=== PATIENT | female | born 1965 | race Caucasian/White ===

== ENCOUNTER → 2020-11-20 | Outpatient (CLI) | payer MEDICARE, OTHER ==
[~2020-11-20] MED LIST: ABILIFY5 MG PO; BENTYL 10MG CAP10 MG PO; CELEBREX200 MG PO; CIPRO500 MG PO; FLEXERIL 10 MG10 MG PO; HYDROCHLOROTH12.5 M1 PO; LEXAPRO20 MG PO; LIPITOR10 MG PO; LYRICA50 MG PO; METHOCARBAMOL500 MG PO; NORCO 7.5-3251 EACH PO; PROTONIX 40 MG40 M1 PO; ROPINIROLE HCL1 MG PO; TOPROL XL 50 MG50 MG PO; VOLTAREN EC 5050 MG PO; WELLBUTRIN XL300 M1 PO; ZESTRIL30 MG PO
== END ==
LOC: KOH-I 11:54
DX: M79.672 Pain in left foot (principal); M19.072 Primary osteoarthritis, left ankle and foot; M77.32 Calcaneal spur, left foot
CPT/HCPCS: 73650

== ENCOUNTER 2021-02-12 11:18 | Inpatient (IN) | payer MEDICARE, OTHER ==
[~2021-02-12] VITALS: Ht 165.1 cm; Wt 148.3 kg
[~2021-02-12 11:18] MED LIST changes: -BENTYL 10MG CAP10 MG PO; -CELEBREX200 MG PO; -HYDROCHLOROTH12.5 M1 PO; -LEXAPRO20 MG PO; -LIPITOR10 MG PO; -LYRICA50 MG PO; -METHOCARBAMOL500 MG PO; -PROTONIX 40 MG40 M1 PO; -ROPINIROLE HCL1 MG PO; -TOPROL XL 50 MG50 MG PO; -VOLTAREN EC 5050 MG PO; -ZESTRIL30 MG PO
[2021-02-12 13:38] LABS: RED BLOOD COUNT 4.41 M/UL (4.00-5.10); WHITE BLOOD COUNT 8.5 K/UL (4.5-11.0)
[2021-02-12 14:02] LABS: BUN/CREATININE RATIO 26 (0-10)
[2021-02-12] MEDS ORDERED: VOLTAREN EC 5050 MG PO (14:46)
[2021-02-12] MEDS ORDERED: ROPINIROLE HCL1 MG PO (14:46)
[2021-02-12] MEDS ORDERED: CELEBREX200 MG PO (14:47)
[2021-02-12] MEDS ORDERED: LIPITOR10 MG PO (14:47)
[2021-02-12] MEDS ORDERED: ZESTRIL30 MG PO (14:48)
[2021-02-12] MEDS ORDERED: BENTYL 10MG CAP10 MG PO (14:48)
[2021-02-12] MEDS ORDERED: HYDROCHLOROTH12.5 M1 PO (14:49)
[2021-02-12] MEDS ORDERED: LYRICA50 MG PO (14:49)
[2021-02-12] MEDS ORDERED: METHOCARBAMOL500 MG PO (14:49)
[2021-02-12] MEDS ORDERED: PROTONIX 40 MG40 M1 PO (14:50)
[2021-02-12] MEDS ORDERED: LEXAPRO20 MG PO (14:50)
[2021-02-12] MEDS ORDERED: TOPROL XL 50 MG50 MG PO (14:51)
[2021-02-13 03:11] LABS: HEMOGLOBIN 11.1 gm/dl (12.3-15.3); RED BLOOD COUNT 4.15 M/UL (4.00-5.10); WHITE BLOOD COUNT 7.4 K/UL (4.5-11.0)
[2021-02-13 03:44] LABS: BUN/CREATININE RATIO 20 (0-10)
[2021-02-14 04:18] LABS: BUN/CREATININE RATIO 14 (0-10)
[2021-02-14 04:21] LABS: HEMOGLOBIN 10.9 gm/dl (12.3-15.3); RED BLOOD COUNT 4.14 M/UL (4.00-5.10); WHITE BLOOD COUNT 7.8 K/UL (4.5-11.0)
--- NOTE | 2021-02-15 10:27 | NUR ---
INSTRUCTED PATIENT ON IMPORTANCE OF TAKING MEDS ORDERED. FOLLOW DIET TO ASSIST WITH PREVENTION OF DIVERTICULITIS FLARE UPS. AVOID NUTS AND SEEDS.KEEP FOLLOW UP APPOINTMNTS. VERBALIZED UNDDERSTANDING. SONYA MEI R.N.
== END 2021-02-15 13:44 | disposition home or self-care (01) | DRG 378 ==
LOC: M/S 12:45 → CDU 02-14 11:06 → M/S 02-14 11:06
PROVIDERS: ADMIT Family Medicine
DX: K57.33 Diverticulitis of large intestine without perforation or abscess with bleeding (principal); Z68.43 Body mass index [BMI] 50.0-59.9, adult; K58.9 Irritable bowel syndrome, unspecified; F41.9 Anxiety disorder, unspecified; M19.90 Unspecified osteoarthritis, unspecified site; Z20.822 Contact with and (suspected) exposure to COVID-19; G89.29 Other chronic pain; F32.9 Major depressive disorder, single episode, unspecified; E03.9 Hypothyroidism, unspecified; M79.7 Fibromyalgia; E78.00 Pure hypercholesterolemia, unspecified; G47.33 Obstructive sleep apnea (adult) (pediatric); E66.9 Obesity, unspecified; M17.10 Unilateral primary osteoarthritis, unspecified knee; G25.81 Restless legs syndrome; G43.909 Migraine, unspecified, not intractable, without status migrainosus; Z90.49 Acquired absence of other specified parts of digestive tract; Z87.442 Personal history of urinary calculi; Z98.51 Tubal ligation status; Z82.61 Family history of arthritis; Z80.3 Family history of malignant neoplasm of breast; Z80.1 Family history of malignant neoplasm of trachea, bronchus and lung; Z82.49 Family history of ischemic heart disease and other diseases of the circulatory system
CPT/HCPCS: 36415; 80048; 80053; 82962; 85025; 85027; J1650; J1956; J2270; J2550; J7030; Q9967; U0002

== ENCOUNTER 2021-06-04 11:13 | Emergency (ER) | payer MEDICARE ==
[~2021-06-04] VITALS: Ht 165.1 cm; Wt 145.1 kg
[~2021-06-04 11:13] MED LIST changes: +BENTYL 10MG CAP10 MG PO; +CELEBREX200 MG PO; +HYDROCHLOROTH12.5 M1 PO; +LEXAPRO20 MG PO; +LIPITOR10 MG PO; +LYRICA50 MG PO; +METHOCARBAMOL500 MG PO; +PROTONIX 40 MG40 M1 PO; +ROPINIROLE HCL1 MG PO; +TOPROL XL 50 MG50 MG PO; +VOLTAREN EC 5050 MG PO; +ZESTRIL30 MG PO
== END 2021-06-04 16:15 | disposition home or self-care (01) ==
LOC: ER1 11:13
DX: R51.9 Headache, unspecified (principal); J02.9 Acute pharyngitis, unspecified; R50.9 Fever, unspecified; I10 Essential (primary) hypertension; Z90.49 Acquired absence of other specified parts of digestive tract; Z20.822 Contact with and (suspected) exposure to COVID-19; Z23 Encounter for immunization
CPT/HCPCS: 99284; M0243; U0002

== ENCOUNTER → 2021-08-14 | Outpatient (CLI) | payer MEDICARE | LOC: KOH-I 13:30 | DX: S86.002A Unspecified injury of left Achilles tendon, initial encounter (principal); I73.9 Peripheral vascular disease, unspecified | CPT/HCPCS: 93926 ==

== ENCOUNTER → 2021-08-28 | Outpatient (CLI) | payer MEDICARE ==
[~2021-08-28] MED LIST changes: +CHLORTHALIDONE25 MG PO; +ST. JOSEPH ASPI81 M1 PO
[2021-08-28 11:10] LABS: HEMOGLOBIN 9.5 gm/dl (12.3-15.3); RED BLOOD COUNT 3.3 M/UL (4.00-5.10); WHITE BLOOD COUNT 8.2 K/UL (4.5-11.0)
[2021-08-28 11:35] LABS: BUN/CREATININE RATIO 29 (0-10)
== END ==
LOC: OPSV2 09:30
PROVIDERS: Podiatrist Foot & Ankle Surgery
DX: Z01.818 Encounter for other preprocedural examination (principal)
CPT/HCPCS: 36415; 71046; 80048; 85027; 93005

== ENCOUNTER → 2021-10-02 | Outpatient (CLI) | payer MEDICARE | LOC: KOH-I 12:20 | DX: M25.572 Pain in left ankle and joints of left foot (principal); M79.672 Pain in left foot | CPT/HCPCS: 73610; 73630 ==

== ENCOUNTER → 2021-12-04 | Outpatient (CLI) | payer MEDICARE | LOC: EXRD 15:22 | DX: M79.89 Other specified soft tissue disorders (principal); M79.605 Pain in left leg; R79.89 Other specified abnormal findings of blood chemistry | CPT/HCPCS: 93971 ==

== ENCOUNTER → 2021-12-04 | Outpatient (CLI) | payer MEDICARE ==
[2021-12-05 08:14] LABS: CALCIUM, SERUM 8.9 mg/dL (8.7-10.2); CREATININE, SERUM 0.78 mg/dL (0.57-1.00); POTASSIUM, SERUM 4.9 mmol/L (3.5-5.2)
== END ==
LOC: LAB 11:26
PROVIDERS: Physician Assistant
DX: M79.89 Other specified soft tissue disorders (principal)
CPT/HCPCS: 36415; 80048; 85379

== ENCOUNTER → 2021-12-19 | Outpatient (CLI) | payer MEDICARE | LOC: CT 12:59 | DX: R06.02 Shortness of breath (principal); R79.89 Other specified abnormal findings of blood chemistry; J98.11 Atelectasis | CPT/HCPCS: 71275; Q9967 ==

== ENCOUNTER → 2021-12-19 | Outpatient (CLI) | payer MEDICARE | LOC: KOH-I 11:37 | DX: R06.02 Shortness of breath (principal); R79.89 Other specified abnormal findings of blood chemistry | CPT/HCPCS: 71046 ==

== ENCOUNTER → 2021-12-21 | Outpatient (CLI) | payer MEDICARE | LOC: ECHO 08:27 → HEART 5 01-03 13:30 | DX: I10 Essential (primary) hypertension (principal); R09.89 Other specified symptoms and signs involving the circulatory and respiratory systems; R06.02 Shortness of breath; R93.89 Abnormal findings on diagnostic imaging of other specified body structures; I08.3 Combined rheumatic disorders of mitral, aortic and tricuspid valves | CPT/HCPCS: ECHO; 93306 ==

== ENCOUNTER → 2022-03-11 | Outpatient (CLI) | payer MEDICARE | LOC: NM 13:00 | DX: R07.9 Chest pain, unspecified (principal); I11.9 Hypertensive heart disease without heart failure | CPT/HCPCS: 78452; 93017; A9502; J2785 ==

== ENCOUNTER 2022-04-08 21:16 | Emergency (ER) | payer MEDICARE ==
[~2022-04-08 21:16] MED LIST changes: +CARVEDILOL6.25 MG PO
[2022-04-09] MEDS ORDERED: LIDOCAINE PAIN1 EACH TP (00:44)
[2022-04-09] MEDS ORDERED: ROBAXIN 750 MG750 MG PO (00:45)
== END 2022-04-09 01:22 | disposition home or self-care (01) ==
LOC: ER1 21:16
DX: M54.42 Lumbago with sciatica, left side (principal); I10 Essential (primary) hypertension; E78.5 Hyperlipidemia, unspecified
CPT/HCPCS: 73590; 96372; 99283; J1100

== ENCOUNTER → 2022-06-28 | Outpatient (CLI) | payer MEDICARE ==
[~2022-06-28] VITALS: Ht 165.1 cm; Wt 154.2 kg
[~2022-06-28] MED LIST changes: +LIDOCAINE PAIN1 EACH TP; +ROBAXIN 750 MG750 MG PO
== END ==
LOC: EROP 17:13
DX: U07.1 COVID-19 (principal); Z23 Encounter for immunization
CPT/HCPCS: M0222; Q0222